=== PATIENT | female | born 1960 | race Caucasian/White ===

== ENCOUNTER 2016-10-28 21:58 | Emergency (ER) | payer MEDICARE, OTHER ==
[2016-10-28] MEDS ORDERED: ALBUTEROL SULFATE 2.5 MG/3 ML VIAL.NEB IH ONE (22:55)
--- NOTE | 2016-10-28 22:56 | ERNOTE ---
Time Seen by Provider: 10/28/16 22:48 Stated Complaint: BAD COUGH,HIGH BP,RIB/BACK PAIN FROM COUGH Presenting Symptoms:: cough Source: patient Exam Limitations: no limitations Immunizations: IMMUNIZATION HX Immunizations Up to Date Yes History of Influenza Vaccine Yes Hx Pneumococcal Vaccination More Information Required Allergies/Adverse Reactions: Allergies duloxetine HCl [From Cymbalta] Adverse Reaction (Mild, Verified 01/15/16 07:33) "MAKES SLEEPY" gabapentin Adverse Reaction (Mild, Verified 01/15/16 07:33) meade paroxetine HCl [From Paxil] Adverse Reaction (Mild, Verified 01/15/16 07:33) "MAKES SLEEPY" Home Medications: HOME MEDICATIONS Atenolol [Tenormin] 25 mg PO QPM 08/29/13 [Last Taken 05/08/15 19:00] Hydrochlorothiazide 12.5 mg PO DAILY 08/29/13 [Last Taken 10/31/14 04:00] Lovastatin [Altoprev] 20 mg PO HS 08/29/13 [Last Taken Unknown] Aspirin [Aspirin Enteric Coated] 81 mg PO DAILY 10/13/14 [Last Taken 10/11/15 1/ 2 tab] Cyanocobalamin [Vitamin B-12] 1,000 mcg IJ Q30D 10/13/14 [Last Taken Unknown] Omeprazole [Prilosec] 40 mg PO DAILY 10/13/14 [Last Taken Unknown] Polyethylene Glycol 3350 [Miralax] 17 gm PO BID 10/13/14 [Last Taken Unknown] traZODone HCL [Desyrel] 100 mg PO HS 10/13/14 [Last Taken Unknown] Cyanocobalamin (Vitamin B-12) [B-12] 1,000 mcg PO DAILY 10/27/14 [Last Taken Unknown] Cyclobenzaprine HCl [Flexeril] 10 mg PO HS 10/27/14 [Last Taken Unknown] Diclofenac Sodium [Voltaren] 1 appl TP QID 10/27/14 [Last Taken Unknown] Methylcellulose (with Sugar) [Fiber Therapy Powder] 1 tbs PO DAILY 10/27/14 [ Last Taken Unknown] valACYclovir HCL [Valtrex] 2,000 mg PO Q12H 10/27/14 [Last Taken Unknown] traMADol HCL [Ultram] 50 mg PO BID PRN 05/03/15 [Last Taken Unknown] Cetirizine HCl/Pseudoephedrine [Zyrtec-D Tablet] 1 each PO DAILY 10/28/16 [Last Taken Unknown] guaiFENesin [Mucinex] 1,200 mg PO BID 10/28/16 [Last Taken Unknown] Amox Tr/Potassium Clavulanate [Augmentin 875-125 Tablet] 875 mg PO Q12H #28 tab 10/29/16 [Last Taken Unknown] - History of Present Ilness Narrative: Pt states she has had a cough for 4 months. She has had a z-pack, steroids, cough medications Rx and OTC, and zyrtec without benefit Timing: constant Severity: moderate Modifying Factors - Improves: Reports: nothing Modifying Factors - Worsens: Reports: activity Review of Systems - Review of Systems Constitutional: Present: recent illness, fatigue EYE: Present: no symptoms reported ENT: Present: nose congestion - just lately Respiratory: Present: See HPI Cardiology: Present: no symptoms reported Gastrointestinal/Abdominal: Present: no symptoms reported Genitourinary: Present: no symptoms reported Musculoskeletal: Present: no symptoms reported Skin: Present: no symptoms reported Neurological: Present: no symptoms reported Endocrine: Present: no symptoms reported Hematologic/Lymphatic: Present: no symptoms reported Psych: Present: no symptoms reported - Patient's Past Medical History Patient History - Medical: GERD Patient History - Cardiac/Respiratory: Arrhythmias, Bronchitis, Hypertension, Hyperlipidemia Patient History - Cancer: Breast Patient History - Surgical Procedures: Appendectomy, , Tubal Ligation, Other Patient History - Other: None - Social History Living Situations: home Psych History: No pertinent hx Smoking Status: Former smoker Have you smoked in the past 12 months: No Do you dip or chew tobacco: No Alcohol Use: occasionally Drug Use: none - Immunizations Immunizations Up to Date: Yes Hx Pneumococcal Vaccination: More Information Required to Determine History of Influenza Vaccine: Yes Physical Exam - Physical Exam General Appearance: Present: wd/wn, alert, mild distress Eye Exam: Normal inspection: bilateral, PERRL: bilateral Ears, Nose, Throat: Present: nasal congestion - with mild erythema Neck: Present: normal inspection, nontender Respiratory: Present: no respiratory distress, wheezing - occasional expiratory , other - coarse lung sounds throughout Cardiovascular/Chest: Present: regular rate, rhythm, no murmur, normal peripheral pulses Extremity Exam: Present: non-tender, normal range of motion, no edema Neurological Exam: Present: alert, oriented, normal mood/affect Skin Exam: Present: normal color, warm/dry ED Progress - Results and Orders Patient's Lab Results:: I have reviewed the patient's lab results. Results and Orders: Laboratory Tests 10/28/16 10/28/16 23:00 23:00 WBC 7.5 Hgb 16.4 H Hct 48.3 H Plt Count 198 Sodium 139 Potassium 3.9 Chloride 101 Carbon Dioxide 23.6 L Anion Gap 18.3 H BUN 12 Creatinine 0.88 Est GFR (Non-Af Amer) 71 D BUN/Creatinine Ratio 13.6 Random Glucose 239 H Calcium 9.2 Total Bilirubin 0.2 AST 75 H ALT 104 H Alkaline Phosphatase 171 H Total Protein 8.4 H Albumin 4.0 - Vital Signs Vital Signs: Vital Signs 10/28/16 22:05 Temperature 37.9 C H Pulse Rate 86 Respiratory 20 Rate Blood Pressure 203/96 O2 Sat by Pulse 96 Oximetry - Progress/Reassessment Chief Complaint: Upper Respiratory Symptoms Progress Note-Subjective: 10/29/16 07:50 Discussed abnormal liver enzymes with the patient. She is aware of the elevated LFT's and is working with her PCP on that issue Departure - Departure Clinical Impression: Sinusitis Qualifiers: Sinusitis location: unspecified location Chronicity: chronic Qualified Code(s) : J32.9 - Chronic sinusitis, unspecified Disposition: Home Follow Up Needed Condition: Good Instructions: Sinusitis, Adult, [id number] Additional Instructions: continue to use mucinex twice a day. Use nasal saline flush daily. Take antibiotics until gone. See your regular doctor as scheduled. Referrals: Kevin Jules MD [Primary Care Provider] - Prescriptions: Amox Tr/Potassium Clavulanate [Augmentin 875-125 Tablet] 875 mg PO Q12H #28 tab
[2016-10-28] MEDS ORDERED: ALBUTEROL SULFATE 2.5 MG/0.5 ML VIAL.NEB IH ONE (22:58)
[2016-10-28] MEDS ORDERED: ALBUTEROL SULFATE/IPRATROPIUM 3 ML NEBU IH ONE (23:01)
[2016-10-28 23:08] LABS: Hematocrit 48.3 % (37.0-47.0); Hemoglobin 16.4 gm/dL (12.5-16.0); Mean Cell Volume 90.4 fl (78-100); Mean Corpuscular Hemoglobin 30.7 pg (27-31); Neutrophil # 5.2 K/mm3 (1.3-6.0); Neutrophil % 69.8 % (42-75.0); Platelet Count 198 K/mm3 (150-450); Red Blood Count 5.34 M/mm3 (4.2-5.4); White Blood Count 7.5 K/mm3 (4.0-10.5)
[2016-10-28 23:21] LABS: Anion Gap 18.3 mmol/L (6.8-13.8); BUN/Creatinine Ratio 13.6 (9.0-21.6); Bilirubin, Total 0.2 mg/dL (0.0-1.1); Ca. Corrected For Albumin 8.9 mg/dL (8.4-10.2); Calcium * 9.2 mg/dL (7.9-10.9); Carbon Dioxide 23.6 mmol/L (24-32.6); Potassium 3.9 mmol/L (3.4-4.6); Total Protein 8.4 gm/dL (6.2-8.2)
--- OUTSIDE RECORDS SUMMARY | 2016-10-28 23:36 | XMS REPORT | Continuity of Care Document ---
:1960 Author Organization [facility] ([facility]) Address [address] [place] [address] Phone [phone] Care Team Providers Name Role Phone Kevin Jules Primary Care Provider [phone] Source Comments This disclosure is being made pursuant to the Care Everywhere program, applicable federal and state laws, and may not contain all informaitonavailable regarding this patient.[facility] ([facility]) Active Allergies and Adverse Reactions No Known Allergies Current Medications Prescription Sig. Disp. Refills Start Date End Date Status atenolol (TENORMIN) 25 mg take 1 Tab by 30 Tab 3 01/13/2009 Active tablet mouth daily for 120 days. htn, Indications: Hypertension hydrochlorothiazide take 1 Tab by 30 Tab 3 01/13/2009 Active (HYDRODIURIL) 12.5 mg Tab mouth daily for tablet 120 days. Indications: Hypertension MULTIVITAMINS take by mouth Active (MULTIVITAMIN PO) daily. CALCIUM CARBONATE/VITAMIN Take 1 Tab by Active D3 (CALCIUM + D PO) mouth daily. aspirin 325 mg tablet Take 650 mg by Active mouth daily lovastatin (ALTOPREV) 20 take 20 mg by Active mg tablet mouth at bedtime. CYANOCOBALAMIN (VITAMIN inject by Active B-12 IJ) injection every month. diclofenac (VOLTAREN) 1 % apply topically 2 Active topical gel times daily. traMADol 50 mg tablet Take 50 mg by Active mouth at bedtime. cyclobenzaprine Take 10 mg by Active (FLEXERIL) 10 mg tablet mouth at bedtime. traZODone 50 mg tablet Take 50 mg by Active mouth at bedtime. polyethylene glycol 3350 02/07/2014 Active (MIRALAX) 17 gram/dose powder omeprazole 40 mg enteric Take 40 mg by Active coated capsule mouth daily. POLYETHYLENE GLYCOL 3350 Active (MIRALAX PO) omeprazole 20 mg enteric 07/24/2015 Active coated capsule Active Problems Problem Noted Date [facility] DJD(carpometacarpal degenerative joint disease), localized primary 2014 Wrist pain 01/04/2015 [facility] arthritis, thumb, degenerative 05/13/2013 Medial epicondylitis 04/20/2013 Pain in limb 04/20/2013 [facility] arthritis 10/29/2012 Cervical radiculopathy, chronic 01/22/2011 Palpitations 08/31/2010 Breast cancer 11/23/2009 Unspecified essential hypertension 01/27/2008 Other and unspecified hyperlipidemia 12/07/2007 Bulimia 09/23/2007 Back pain 10/21/2006 Immunizations Name Dates Previously Given Next Due Influenza, PF 05/21/2010 Influenza, unspecified 09/05/2013 Tdap 05/21/2010 Social History Tobacco Use Types Packs/Day Years Used Date Former Smoker Cigarettes 1 7 Quit: 08/04/1983 Smokeless Tobacco: Never Used Tobacco Cessation:Counseling Given: Yes Comments:quit age 24 (1982) Alcohol Use Drinks/Week oz/Week Comments No Last Filed Vital Signs Vital Sign Reading Time Taken Blood Pressure 134/69 05/30/2015 12:30 PM CDT Pulse 64 05/30/2015 7:12 AM CDT Temperature 36.2 C (97.2 F) 05/30/2015 11:21 AM CDT Respiratory Rate 16 05/30/2015 12:30 PM CDT Height 1.702 m (5' 7") 04/03/2015 11:24 AM CDT Weight 112.5 kg (248 lb 0.3 oz) 05/30/2015 7:12 AM CDT Body Mass Index 38.84 05/30/2015 7:12 AM CDT Oxygen Saturation 93% 05/30/2015 12:30 PM CDT Plan of Care Health Maintenance Due Date Last Done Comments HCV Screening 1960 Hepatitis B Vaccine (1 of 3 1960 - Primary Series) MMR Vaccine 1980 Pneumococcal Vaccine (1 of 3 1981 - PCV13) Colonoscopy 10/04/2012 Mammogram 08/05/2013 08/05/2012, Additional history exists 08/06/2011, 01/22/2011 Cervical Cancer Screening 08/06/2014 08/06/2011, 12/16/1996 Lipid Disorder Screening 11/28/2014 11/28/2009, 12/07/2007 Influenza Vaccine: Seasonal 03/04/2016 09/05/2013, (#1) 05/21/2010 Td Vaccine 05/21/2020 05/21/2010 Tdap Vaccine Completed 05/21/2010 Results from Last 3 Months Not on file
[2016-10-29] MEDS ORDERED: ACETAMINOPHEN 500 MG TABLET PO ONE (00:56)
[2016-10-29 01:54] VITALS: BP 183/91
[2016-10-29] MEDS ORDERED: AMOX TR/POTASSIUM CLAVULANATE 875 MG TABLET PO ONE (02:02)
[2016-10-29] MEDS ORDERED: AMOX TR/POTASSIUM CLAVULANATE 875 MG TABLET ONE (02:05)
== END 2016-10-29 02:11 | disposition home or self-care (01) ==
LOC: ER 21:58
DX: J32.9 Chronic sinusitis, unspecified (principal); Z87.891 Personal history of nicotine dependence; Z85.3 Personal history of malignant neoplasm of breast; K21.9 Gastro-esophageal reflux disease without esophagitis; E78.5 Hyperlipidemia, unspecified; I10 Essential (primary) hypertension

== ENCOUNTER 2017-01-16 10:19 | Day surgery (SDC) | payer MEDICARE, OTHER ==
--- OUTSIDE RECORDS SUMMARY | 2017-01-16 10:24 | XMS REPORT | Continuity of Care Document ---
:1960 Author Organization [facility] ([facility]) Address [address] [place] [address] Phone [phone] Care Team Providers Name Role Phone Kevin Jules Primary Care Provider [phone] Source Comments This disclosure is being made pursuant to the Care Everywhere program, applicable federal and state laws, and may not contain all informaitonavailable regarding this patient.[facility] ([facility]) Active Allergies and Adverse Reactions No [...]
--- NOTE | 2017-01-16 11:12 | OR ---
Anesthesia Pre Procedure Eval Date of Service: 01/16/17 Pre Procedure Evaluation: Last Vital Signs Temp 36.2 C L 01/16/17 10:25 Pulse 70 01/16/17 10:25 Resp 20 01/16/17 10:25 BP 157/94 01/16/17 10:25 Pulse Ox 96 01/16/17 10:25 Anesthesia Pre Procedure Evaluation DATE: 01/16/2017. TIME: 08/04/2004. INDICATIONS: Back pain and left leg radiculopathy, generative disc disease, M51.86 PAST MEDICAL HISTORY: Is a 56-year-old female with a long-standing history of lower back pain and left leg radiculopathy. She has had multiple steroid injections in the past. EXAM: MRI report and films were reviewed. Pain is 9/10 on pain scale at present. ASSESSMENT OF MEDICAL STATUS: O.K. to proceed with GRIFFIN. PLANNED PROCEDURE: Fluoroscopic guided epidural steroid injection L3-4. Home Medications: HOME MEDICATIONS Atenolol [Tenormin] 25 mg PO QPM 08/29/13 [Last Taken 05/08/15 19:00] Hydrochlorothiazide 12.5 mg PO DAILY 08/29/13 [Last Taken 10/31/14 04:00] Lovastatin [Altoprev] 20 mg PO HS 08/29/13 [Last Taken Unknown] Aspirin [Aspirin Enteric Coated] 81 mg PO DAILY 10/13/14 [Last Taken 10/11/15 1/ 2 tab] Cyanocobalamin [Vitamin B-12] 1,000 mcg IJ Q30D 10/13/14 [Last Taken Unknown] Polyethylene Glycol 3350 [Miralax] 17 gm PO BID 10/13/14 [Last Taken Unknown] traZODone HCL [Desyrel] 100 mg PO HS 10/13/14 [Last Taken Unknown] Cyanocobalamin (Vitamin B-12) [B-12] 1,000 mcg PO DAILY 10/27/14 [Last Taken Unknown] Cyclobenzaprine HCl [Flexeril] 10 mg PO HS 10/27/14 [Last Taken Unknown] Diclofenac Sodium [Voltaren] 1 appl TP QID 10/27/14 [Last Taken Unknown] Methylcellulose (with Sugar) [Fiber Therapy Powder] 1 tbs PO DAILY 10/27/14 [ Last Taken Unknown] valACYclovir HCL [Valtrex] 2,000 mg PO Q12H PRN 10/27/14 [Last Taken Unknown] traMADol HCL [Ultram] 50 mg PO BID PRN 05/03/15 [Last Taken Unknown] Blood-Glucose Meter [Blood Glucose Monitoring] 1 each MC QID 01/13/17 [Last Taken Unknown] Lisinopril [Prinivil] 5 mg PO DAILY 01/13/17 [Last Taken Unknown] Omeprazole [Prilosec] 20 mg PO BID 01/13/17 [Last Taken Unknown] metFORMIN HCL [Glucophage] 1,000 mg PO BIDWM 01/13/17 [Last Taken Unknown]
[2017-01-16] MEDS ORDERED: DEXAMETHASONE SOD PHOSPHATE 10 MG/ML VIAL IJ ONE (11:24)
[2017-01-16] MEDS ORDERED: IOPAMIDOL 20 ML VIAL IJ ONE (11:25)
[2017-01-16] MEDS ORDERED: LIDOCAINE HCL/PF 5 ML VIAL IJ ONE (11:25)
--- NOTE | 2017-01-16 14:14 | OR ---
Anesthesia Procedure Note - Anesthesia Procedure Note Date of Service: 01/16/17 Narrative: Vital Signs - Last Taken Temp 36.5 C 01/16/17 11:49 Pulse 59 L 01/16/17 14:04 Resp 18 01/16/17 14:04 BP 131/67 01/16/17 14:04 Pulse Ox 99 01/16/17 13:50 O2 Oxygen Delivery Method Room Air 01/16/17 14:06 ANESTHESIA PROCEDURE NOTE Date of Procedure: 01/16/2017. Time of procedure: 1120. Performed by: Candelario Drake CRNA Lot Worker: None. Preprocedure diagnosis: Degenerative disc disease, back pain, left leg radiculopathy.. Post procedure diagnosis: Same. Procedure: Fluoroscopic guided epidural Steroid Injection L3-4. Indications: This 56-year-old female with a history of back and left leg pain. She's had multiple steroid injections in the past. Potential risks and benefits of the procedure were discussed with the patient and consent was obtained. Findings: See below. Details of the procedure: The patient was brought back to operating room #3. The patient was then placed in the prone position to comfort. DuraPrep was applied to the patient's back. Patient was then draped in sterile fashion. Lidocaine 1% was infiltrated to the skin and subcutaneous tissues at the level of the L3-4 interspace using fluoroscopic guidance. The epidural space was identified using a 20-gauge Tuohy needle with [id number] technique. The Tuohy needle to appear to be questionable as to epidural versus subarachnoid space with the lateral fluoroscopic view. 2 mL of Isovue contrast was then injected after negative aspiration for blood and CSF. the contrast was difficult to see but in the lateral view did appear to be in the subarachnoid space despite having negative aspiration for CSF. The needle was withdrawn slightly and [id number] with saline injection remained as before. Preservative free Decadron 10 mg + 5 mL of 1% preservative-free lidocaine was administered to the epidural space after negative aspiration for blood and CSF. The Tuohy needle was removed intact. A Band-Aid was applied to the patient's back. The patient was then placed in a supine position for 5 minutes before returning to the ambulatory surgical unit. Total fluoroscopy time: 30.56 seconds. Cumulative dose: 18.32 mGy. EBL: Minimal. Fluids: N/A. Specimen: N/A. Post procedure condition: The patient tolerated the procedure well. The patient did experience bilateral motor weakness of her lower extremities after injection. Patient was monitored closely and no motor weaknesses or paresthesias were noted upon discharge. Thank you for this consultation. Candelario Drake CRNA
[2017-01-16 15:36] VITALS: BP 129/90
== END 2017-01-16 10:20 | disposition home or self-care (01) ==
LOC: AMB 10:19
PROC: 3E0S3BZ Introduction of Anesthetic Agent into Epidural Space, Percutaneous Approach (ICD-10-PCS; 2017-01-16)
PROC: 3E0S33Z Introduction of Anti-inflammatory into Epidural Space, Percutaneous Approach (ICD-10-PCS; principal; 2017-01-16 11:00)
DX: M51.16 Intervertebral disc disorders with radiculopathy, lumbar region (principal); Z68.37 Body mass index [BMI] 37.0-37.9, adult

== ENCOUNTER 2017-05-13 07:58 | Day surgery (SDC) | payer MEDICARE, OTHER ==
[~2017-05-13 07:58] MED LIST: RINGER'S SOLUTION,LACTATED 1,000 ML IV PRN
[2017-05-13] MEDS ORDERED: RINGER'S SOLUTION,LACTATED 1,000 ML IV ONE (08:36)
--- NOTE | 2017-05-13 10:27 | OR ---
Operative Report - Dictated Report Narrative: Date: 05/13/2017 Preop dx: Screen for colon cancer Postop dx: mild sigmoid diverticulosis Procedure: Total colonoscopy Staff surgeon: Jakob Echavarria MD Anesthesia: MAC per SCIENCE INTERN EBL: none Specimen: none Procedure: After informed consent and appropriate sedation the patient was placed in the left lateral decubitus position. A flexible fiberoptic video colonoscopy was introduced and advanced under direct vision to the cecum. The usual landmarks were identified. Preparation was excellent and excellent views were obtained. The findings were of a normal cecum, ascending colon, hepatic flexure, transverse colon, splenic flexure, descending colon, sigmoid colon had mild diverticulosis but otherwise no abnormality, rectum, and anus. The mucosal color, vasculature, and texture were normal throughout. No suspicious masses were seen. The patient tolerated the procedure well without apparent complications and was discharged from the endoscopy suite in stable condition.
[2017-05-13 11:11] VITALS: BP 120/69
== END 2017-05-13 07:59 | disposition home or self-care (01) ==
LOC: AMB 07:58
PROVIDERS: ATTEND Specialist
PROC: 0DJD8ZZ Inspection of Lower Intestinal Tract, Via Natural or Artificial Opening Endoscopic (ICD-10-PCS; principal; 2017-05-13 08:50)
DX: Z12.11 Encounter for screening for malignant neoplasm of colon (principal); K57.30 Diverticulosis of large intestine without perforation or abscess without bleeding; I10 Essential (primary) hypertension; E11.9 Type 2 diabetes mellitus without complications; E78.00 Pure hypercholesterolemia, unspecified; K21.9 Gastro-esophageal reflux disease without esophagitis; E53.8 Deficiency of other specified B group vitamins; E66.9 Obesity, unspecified; Z68.39 Body mass index [BMI] 39.0-39.9, adult; Z86.010 Personal history of colon polyps; Z87.891 Personal history of nicotine dependence

== ENCOUNTER 2017-06-17 12:08 | Day surgery (SDC) | payer MEDICARE, OTHER ==
[~2017-06-17 12:08] MED LIST changes: -RINGER'S SOLUTION,LACTATED 1,000 ML IV PRN; +ceFAZolin SODIUM 1 GM in DEXTROSE 5 % IN WATER 100 ML IV PRN
[2017-06-17] MEDS ORDERED: RINGER'S SOLUTION,LACTATED 1,000 ML IV ONE ×2 (12:43→14:51)
[2017-06-17] MEDS ORDERED: BUPIVACAINE HCL/EPINEPHRINE 50 ML VIAL IJ ONE (14:10)
[2017-06-17] MEDS ORDERED: BUPIVACAINE HCL 50 ML VIAL IJ ONE (14:10)
[2017-06-17] MEDS ORDERED: DEXAMETHASONE SOD PHOSPHATE 4 MG/ML VIAL IJ ONE (14:45)
[2017-06-17] MEDS ORDERED: HYDROcodone/ACETAMINOPHEN 1 EACH TABLET PO PRN (16:10)
[2017-06-17] MEDS ORDERED: PROCHLORPERAZINE EDISYLATE 5 MG/ML VIAL IM PRN (16:15)
[2017-06-17 17:03] VITALS: BP 128/74
== END 2017-06-17 12:09 | disposition home or self-care (01) ==
LOC: AMB 12:08
PROVIDERS: ATTEND Podiatrist
PROC: 0L8W0ZZ Division of Left Foot Tendon, Open Approach (ICD-10-PCS; 2017-06-17)
PROC: 0QBR0ZZ Excision of Left Toe Phalanx, Open Approach (ICD-10-PCS; principal; 2017-06-17 13:00)
DX: M20.42 Other hammer toe(s) (acquired), left foot (principal); M89.372 Hypertrophy of bone, left ankle and foot; I10 Essential (primary) hypertension; E11.9 Type 2 diabetes mellitus without complications; E78.00 Pure hypercholesterolemia, unspecified; K21.9 Gastro-esophageal reflux disease without esophagitis; E53.8 Deficiency of other specified B group vitamins; K58.9 Irritable bowel syndrome, unspecified; F32.9 Major depressive disorder, single episode, unspecified; E66.9 Obesity, unspecified; Z68.39 Body mass index [BMI] 39.0-39.9, adult; Z87.891 Personal history of nicotine dependence